=== PATIENT | male | born 1980 | race Caucasian/White ===

== ENCOUNTER 2016-05-27 08:52 | Emergency (ER) | payer OTHER ==
[~2016-05-27] VITALS: Ht 177.8 cm; Wt 100.0 kg
[2016-05-27 08:58] VITALS: BP 151/102; PULSE 86; RESP 18; O2SAT 99
--- NOTE | 2016-05-27 09:23 | ED.REPORT ---
HPI-Chest Pain Under 40 Date of Service May 27, 2016 ED Provider: The patient is a 36 year old male who presents to the emergency department complaining of right-sided chest pain that began 5 days ago. He denies known injury or trauma. He has not had similar symptoms in the past. His pain is worse with deep breaths, twisting, and range of motion of his right shoulder. He has been taking ibuprofen and applying ice with no relief. He denies history of lung or heart disease. He denies fever, chills, cough, hemoptysis, congestion , nausea, vomiting or diarrhea. Nursing Notes Stated Complaint: PAIN ON RT SIDE OF CHEST,HARD TO BREATHE Chief Complaint: Chest Pain-Non Cardiac Nature Nursing Notes Reviewed: Yes Allergies: Coded Allergies: No Known Allergies (Unverified , 05/27/16) Scheduled Meloxicam (Meloxicam) 15 Mg Tablet 15 MG PO DAILY General Time Seen by MD: 09:23 Chief Complaint Chest pain (right-sided) Hx Obtained From: Patient Arrived By: Walk-in Sudden in Onset?: Yes Onset Occurred: 5 days ago Symptom Duration: Since onset Location: : Chest right Quality: Painful Radiation: : Does not radiate Migration/Movement: Reports: None Severity: Current: Moderate Severity: Maximum: Moderate Exacerbated by: Deep breath, Movement Recent Healthcare: No recent doctor visit, No recent hospitalization Similar Sx Previous: No Risk Factors PERC Rule PERC Result: All PERC criteria "No", PERC rule satisfied Well's Criteria for PE Well's PE Score: 0-2 pts (low risk 3.6%) Past Medical History Past Medical History Denies Family History Reports: Cancer Smoking History Current Every Day Smoker Social History Alcohol Use: 1-3 per day Other Social History: Good social support, Local resident Occupation Works at [email or web address] Ambulatory Status Independent Review of Systems Constitutional: Denies: Chills, Fever Respiratory: Reports: Pleuritic pain, Denies: Hemoptysis, Non-productive cough, Shortness of breath Cardiovascular: Reports: Chest pain GI: Denies: Abdominal pain, Diarrhea, Nausea, Vomiting Musculoskeletal: Denies: Back pain, Extremity swelling Skin: Denies Rash Neurologic: Denies: Headache Complete sys rev & neg: except as marked. Physical Exam Initial Vital Signs Vital Signs (First) Date Time Temp Pulse Resp B/P Pulse Ox O2 Delivery O2 Flow Rate FiO2 05/27/16 08:58 36.1 86 18 151/102 99 Initial VS: Reviewed Head / Eyes: Atraumatic, Normocephalic, PERRL ENT: Mucous membranes moist, Conjunctiva normal, No scleral icterus Neck: Supple, Non-tender, Full range of motion Abdomen / GI: Soft, Non-tender, No guarding, No rebound, No distention Lymphatic: No lymphadenopathy Extremities: Vascular intact, Neuro intact, No swelling, No tenderness Skin: Warm, Dry, No cyanosis Neurologic: Alert, Oriented, Nonfocal Psychiatric: Mood/affect normal, Behavior normal, Normal thought content General/Constitutional: Awake, Alert Distress / Hydration: Positive: Distress mild Halted movement, obvious splinting Respiratory / Chest: Breath sounds NL, Breath sounds = bilat, No respiratory distress, No rales, No rhonchi, No wheezing, No retractions, No chest wall deformity Cardiovascular: Heart rate NL, Regular rhythm, Heart sounds NL, No murmurs, No rubs, Peripheral circulation NL, Pulses = bilaterally, No gross BP differential Interpretation & Diagnostics Lab Results Interpretation Result Diagram: 05/27/16 1000 05/27/16 1000 Test 05/27/16 10:00 White Blood Count 9.7th/mm3 (3.8-10.1) Red Blood Count 5.02mil/mm3 (4.40-5.80) Hemoglobin 15.0g/dL (13.8-17.2) Hematocrit 42.5% (41.0-50.0) Mean Corpuscular Volume 84.7fL (81-100) Mean Corpuscular Hemoglobin 29.9pg (27.0-35.0) Mean Corpuscular Hemoglobin Concent 35.3% (32.0-37.0) Red Cell Distribution Width 12.5% (12.3-15.4) Platelet Count 226bil/L (150-400) Neutrophils (%) (Auto) 66.8% (40-74) Lymphocytes (%) (Auto) 23.6% (14-46) Monocytes (%) (Auto) 8.2% (4-12) Eosinophils (%) (Auto) 1.0% (0-5) Basophils (%) (Auto) 0.3% (0-3) Sodium Level 139mEq/L (134-144) Potassium Level 4.7mEq/L (3.5-5.2) Chloride Level 104mEq/L (97-108) Carbon Dioxide Level 25mmol/L (18-29) Blood Urea Nitrogen 22mg/dL (6-20) Creatinine 0.87mg/dL (0.76-1.27) Estimat Glomerular Filtration Rate 107mL/min (>59) Glucose Level 108mg/dL (60-99) Calcium Level 8.6mg/dL (8.5-10.1) Total Bilirubin 0.4mg/dL (0.0-1.2) Aspartate Amino Transf (AST/SGOT) 14U/L (0-50) Alanine Aminotransferase (ALT/SGPT) 9U/L (0-44) Alkaline Phosphatase 56U/L (25-150) Troponin T < 0.010ug/L (0.0-0.011) Total Protein 6.8g/dL (6.4-8.4) Albumin 4.0g/dL (3.4-5.0) ECG Interpretation ECG Interpretation: Normal sinus rhythm with a rate of 62 Time: 09:46 Interpreted by: ED physician X-Ray Chest Interpretation Chest Xray Interpretation: IMPRESSION: No acute cardiopulmonary disease. Dictated by: William Archer M.D. on 05/27/2016 at 9:52 View: Portable, 1 view Interpretation / Wet Read by: Interpret - Radiologist CT Chest Interpretation IMPRESSION: 1. No pleural pathology or rib fractures to explain pleuritic lateral right chest pain. 2. Hepatic remote granulomatous disease. Dictated by: William Archer M.D. on 05/27/2016 at 10:35 Study type: Chest CT no contrast Interpretation / Wet Read by: Interpret - Radiologist Re-Eval/Medical Decision Source of Hx: Old records Re-Evaluation/Progress #1: Time of Eval: 10:15 Re-Evaluation/Progress Note: Rechecked the patient. Discussed plan for CT. Re-Evaluation/Progress #2: Time of Eval: 10:50 Re-Evaluation/Progress Note: Discussed CT results, diagnosis, and plan for discharge. All questions were addressed. Consultation : Referral / Consult Name: William Archer MD Call Returned at: 10:10 Note: Discussed imaging options with the on-call radiologist. He recommends a non-contrast chest CT. Counseled Regarding: Diagnosis, Lab results, Need for follow-up, When/why to return to ED Discharge & Departure Primary Impression: Chest wall pain Disposition: Home Discharge Condition All VS Reviewed: Yes Condition: Stable Patient Instructions: Chest Pain (ED) Additional Instructions: Thank you for entrusting us with your care today. Your CT and x-ray results today are reassuring. There is no sign of any tumor or growth, pneumothorax, or pneumonia. Your labs and EKG today are also reassuring. There is no sign of a heart attack. I recommend giving it a week to see if you are feeling better. You can take meloxicam once daily for pain. Followup with a primary care provider next week if your pain continues. We have given you a referral to Dr. Hopper. I recommend establishing care with him or someone else at this clinic even if your pain resolves. Return to the emergency department if you develop increased pain, shortness of breath, lightheadedness, dizziness, weakness, or any other new or concerning symptoms. Referrals: Sadiq Hopper Attestation Portions of this note were transcribed by Perlita Quach. I, Dr. Dc Dee personally performed the history, physical exam and medical decision-making; I reviewed and confirmed the accuracy of the information in the transcribed note. Signed by: Melissa Shah, 05/27/2015 and 1100. copies to: Sadiq Hopper Kirk H MD May 27, 2016 09:23 Perlita Quach May 27, 2016 09:29
--- NOTE | 2016-05-27 09:54 | DRSVH ---
PROCEDURE: X-RAY CHEST, TWO VIEWS ([id number]) INDICATIONS: 36-year-old male with right anterior chest pain for several days. TECHNIQUE: 2 views of the chest were acquired. COMPARISON: None. FINDINGS: Surgical changes and devices: None. Lungs and pleura: No pleural effusions or pneumothorax. Lungs are clear. Mediastinum: Mediastinal contours are normal. Heart size is normal. Bones and chest wall: No suspicious bony abnormalities. Soft tissues appear unremarkable. IMPRESSION: No acute cardiopulmonary disease. Dictated by: William Archer M.D. on 05/27/2016 at 9:52 Approved by: William Archer M.D. on 05/27/2016 at 9:52
[2016-05-27 10:15] LABS: BASOPHILS % (AUTO) 0.3 % (0-3); MONOCYTES % (AUTO) 8.2 % (4-12); Mean Corpuscular Hemoglobin 29.9 pg (27.0-35.0); Mean Corpuscular Volume 84.7 fL (81-100); NEUTROPHILS % (AUTO) 66.8 % (40-74); Platelet Count 226 bil/L (150-400)
--- NOTE | 2016-05-27 10:37 | DRSVH ---
PROCEDURE: CT CHEST WITHOUT CONTRAST ([id number]) INDICATIONS: 36-year-old male with severe lateral right pleuritic chest pain for one week, without kn own trauma. TECHNIQUE: Noncontrast 5 mm thick sections acquired from the pulmonary apices to the posterior costophrenic angl es. 7 mm thick coronal and sagittal MIP reformats were then acquired. For radiation dose reduction, the following was used: automated exposure control, adjustment of mA and/or kV according to patient size. COMPARISON: [facility], CR, XR CHEST 2VW, 05/27/2016, 9:32. FINDINGS: Image quality: Excellent. Lungs and pleura: No acute air space opacities. No pleural effusions or pneumothorax. Central and peripheral airways are patent and normal in caliber. Mediastinum: Heart size is normal. No pericardial effusion. No mediastinal adenopathy by size crit eria. Thoracic aorta and central pulmonary arteries are normal in size. Esophagus is normal in colten bryant. No hiatal hernia. Bones and chest wall: No suspicious bony lesions. No vertebral body compression fractures. No axil maricruz or supraclavicular adenopathy by size criteria. Thyroid gland is normal in size. Abdomen: Scattered calcified punctate liver granulomas are present. Other visualized upper abdominal solid organs and bowel loops appear normal in the absence of contrast. IMPRESSION: 1. No pleural pathology or rib fractures to explain pleuritic lateral right chest pain. 2. Hepatic remote granulomatous disease. Dictated by: William Archer M.D. on 05/27/2016 at 10:35 Approved by: William Archer M.D. on 05/27/2016 at 10:35
[2016-05-27 10:40] LABS: TROPONIN T < 0.010 ug/L (0.0-0.011)
[2016-05-27] MEDS ORDERED: MELO-253 PO (10:57)
[2016-05-27 11:06] VITALS: BP 141/111; PULSE 68; RESP 18; O2SAT 100
== END 2016-05-27 10:58 | disposition home or self-care (01) ==
LOC: SED 08:52
DX: R07.89 Other chest pain (principal); F17.200 Nicotine dependence, unspecified, uncomplicated